=== PATIENT | male | born 1965 | race Caucasian/White ===

== ENCOUNTER 2016-06-02 08:18 | Inpatient (IN) | payer OTHER ==
[~2016-06-02 08:18] MED LIST: ACETAMINOPHEN 325 MG TAB PO ONE; CEFAZOLIN 2 GM/DEXTR 100 ML IV ONE; CHLORHEXIDINE GLUC HIBICLENS 118 ML BTL TP ONE; DEXAMETHASONE 4 MG/ML VIAL IVP ONE; FAMOTIDINE 20 MG TAB PO ONE; ROPI/epiNEPH/KETOROLAC JOINT COCKTAIL IU ONE; TRANEXAMIC ACID 3,000 MG in NS 50 ML IRR ONE
[2016-06-02] MEDS ORDERED: SKIN ADHESIVE (DERMABOND) 1 EACH TP ONE ×2 (08:31→13:10)
[2016-06-02] MEDS ORDERED: VANCOMYCIN 1 GM VIAL IV ONE (08:31)
[2016-06-02] MEDS ORDERED: TRANEXAMIC ACID 3,000 MG/50 ML BAG IRR ONE (08:31)
[2016-06-02] MEDS ORDERED: LIDOCAINE 1% 5 ML SDV ID PRN (08:51)
[2016-06-02] MEDS ORDERED: LR 1,000 ML IV ONE (08:51)
[2016-06-02] MEDS ORDERED: FAMOTIDINE 20 MG TAB ONE (08:56)
[2016-06-02] MEDS ORDERED: DEXAMETHASONE 4 MG/ML VIAL ONE (08:56)
[2016-06-02] MEDS ORDERED: ACETAMINOPHEN 325 MG TAB ONE (08:56)
[2016-06-02] MEDS ORDERED: CEFAZOLIN 2 GM/DEXTROSE/100 ML BAG IV ONE (08:56)
[2016-06-02] MEDS ORDERED: MIDAZOLAM 2 MG/2 ML VIAL ONE (10:53)
[2016-06-02] MEDS ORDERED: PROPOFOL/EMULSION 500 MG/50 ML BOTTLE IV ONE ×2 (11:02→11:53)
[2016-06-02] MEDS ORDERED: METOCLOPRAMIDE 10 MG/2 ML VIAL IVP PRN (11:36)
[2016-06-02] MEDS ORDERED: DIPHENOXYLATE/ATROPINE LOMOTIL 1 TAB PO PRN (11:36)
[2016-06-02] MEDS ORDERED: LACTULOSE 20 GM/30 ML UDCUP PO PRN (11:36)
[2016-06-02] MEDS ORDERED: diphenhydrAMINE 25 MG CAP PO PRN (11:36)
[2016-06-02] MEDS ORDERED: TEMAZEPAM 15 MG CAP PO PRN (11:36)
[2016-06-02] MEDS ORDERED: ONDANSETRON 4 MG/2 ML VIAL IVP PRN (11:36)
[2016-06-02] MEDS ORDERED: MAGNESIUM HYDROXIDE 30 ML UDCUP PO PRN (11:36)
[2016-06-02] MEDS ORDERED: PROMETHAZINE HCL 25 MG SUPPR PR PRN (11:36)
[2016-06-02] MEDS ORDERED: ONDANSETRON DISINTEGRATING 4 MG TAB PO PRN (11:36)
[2016-06-02] MEDS ORDERED: CYCLOBENZAPRINE 10 MG TAB PO PRN (11:36)
[2016-06-02] MEDS ORDERED: PROMETHAZINE HCL 25 MG/ML VIAL IVP PRN (11:36)
[2016-06-02] MEDS ORDERED: BISACODYL 10 MG SUPP PR PRN (11:36)
[2016-06-02] MEDS ORDERED: PHARMACY PAIN CONSULT 1 EA MISC PRN (11:36)
[2016-06-02] MEDS ORDERED: POLYETHYLENE GLYCOL 3350 17 GM PKT PO PRN (11:36)
[2016-06-02] MEDS ORDERED: LR 1,000 ML IV SCH (12:00)
[2016-06-02] MEDS ORDERED: PROPOFOL 200 MG/20 ML VIAL ONE (12:46)
[2016-06-02] MEDS ORDERED: fentaNYL 100 MCG/2 ML INJ ONE (12:47)
[2016-06-02] MEDS ORDERED: ONDANSETRON 4 MG/2 ML VIAL ONE (12:48)
--- NOTE | 2016-06-02 13:07 | POSTOPPROG ---
Post Op Note Date of Operation: 06/02/16 Surgeon: Jarett Villagomez Associate Software Engineer: Narcisa kay Anesthesiologist: Danny Anesthesia: Spinal Pre-op Diagnosis: L knee DJD Post-op Diagnosis: same Indication: PAin Procedure: L TKA with removal ACL screws Findings: DJD knee Inf/Abcess present in the surg proc area at time of surgery?: No EBL: 50-100
[2016-06-02] MEDS ORDERED: BUPIVACAINE 0.5% 30 ML SDV ONE (13:08)
--- NOTE | 2016-06-02 14:32 | DX ---
Left Knee, Two Views History: Postop alignment check. Findings: A left knee prosthesis is present and is in excellent postoperative alignment. Gas is prese nt in the soft tissues as expected postoperatively. No fractures are seen. Impression: Excellent postoperative alignment.
[2016-06-02 14:45] VITALS: RESP 16
[2016-06-02] MEDS: ACETAMINOPHEN 325 MG TAB PO SCH ×3 (15:08→23:10)
[2016-06-02] MEDS ORDERED: WARFARIN SODIUM 5 MG TAB PO SCH (16:00)
[2016-06-02] MEDS: oxyCODONE IR 5 MG TAB PO PRN ×2 (16:10→21:24)
--- NOTE | 2016-06-02 18:11 | GOP ---
[f rep st] OPERATIVE REPORT DATE OF OPERATION: 06/02/2016 SURGEON: Natasha Villagomez MD AIRCRAFT INSTRUMENT REPAIRER: DUONG Shepard ANESTHESIA: Spinal. PREOPERATIVE DIAGNOSIS: Left knee osteoarthritis. POSTOPERATIVE DIAGNOSIS: Left knee osteoarthritis. PROCEDURE PERFORMED: Left total knee arthroplasty. FINDINGS: ESTIMATED BLOOD LOSS: 50 cc. INDICATIONS: This is a 51-year-old male with severe and progressive pain and deformity of the left knee unresponsive to conservative care. Risks and benefits of the surgical intervention were explained in detail. DESCRIPTION OF PROCEDURE: The patient was brought to the operative room and placed on the table in the supine position. Spinal anesthesia was induced without difficulty. A pneumatic tourniquet was applied about the left proximal thigh, and the leg was prepped and draped in a sterile fashion. The leg peña was applied. After exsanguination by elevation the tourniquet was inflated to 250 mm of mercury. Incision was made anterior medial from the tibial tuberosity to a point 2 cm proximal to the superior pole of the patella. Medial parapatellar arthrotomy was carried out from the superior pole of the patella and posteriorly in line with the fibers of the Type 2 VMO. The medial collateral ligament was elevated and the infrapatellar fat pad was resected. The patella was everted and the articular surface was excised. A 38 mm patellar button was placed. The distal femoral guide hole was drilled and the 6 degree alignment cem was placed. A 10 mm distal femoral cut was made without difficulty. Attention was turned to the tibia and a standard 9 mm cut based on the medial and tibial condyle was performed. The tibial articular surface was excised without difficulty. Attention was turned back to the femur and a size 6 Triathlon femoral cutting block was positioned. Anterior, posterior, and chamfer cuts were made, followed by the intercondylar box cut. ACL screws from tibia and femur were removed. The knee was extended and the remnants of the medial and lateral meniscus were excised. The posterior capsule was injected with ropivacaine, epinephrine and Toradol. A size 7 MIS mini-keel tibial tray was positioned. Trial reduction was then carried out. There was excellent range of motion, alignment, and stability using the 16 mm polyethylene. All trials were then removed. The joint was thoroughly irrigated and carefully dried. Two packages of cement and 2 grams of vancomycin were mixed in the vacuum mixer and placed on the fixation surfaces of all surfaces of the components. The components were implanted and all excess cement was thoroughly removed. The permanent 16 mm polyethylene was placed without difficulty. The tourniquet was deflated and all bleeders were coagulated. The wound was thoroughly irrigated and closed using interrupted sutures of 2-0 Vicryl for the joint capsule. The subcu was closed with 3-0 Vicryl and the skin with 4-0 Monocryl. Dermabond and Steri-Strips were applied followed by a compressive dressing. The patient was then moved from the operating room to the recovery room in good condition, having tolerated the procedure well. PATHOLOGY: Severe tricompartmental osteoarthritis. 10 degrees. /[id number]/MODL MTDD
[2016-06-02] MEDS: ceFAZolin 2 GM/DEXTROSE 100 ML IV SCH (18:29)
[2016-06-02] MEDS: FAMOTIDINE 20 MG TAB PO SCH (19:37)
[2016-06-02] MEDS: SENNOSIDES/DOCUSATE SODIUM TAB PO SCH (19:37)
[2016-06-03] MEDS: ceFAZolin 2 GM/DEXTROSE 100 ML IV SCH (03:33)
[2016-06-03] MEDS: ACETAMINOPHEN 325 MG TAB PO SCH ×2 (05:03→11:15)
[2016-06-03 05:33] LABS: HEMATOCRIT 41.2 % (40.0-51.0); HEMOGLOBIN 14.4 g/dL (13.7-17.5)
[2016-06-03 05:50] LABS: INR 1.15 (0.83-1.16); PROTIME(PATIENT) 14.7 SEC (12.0-15.0)
[2016-06-03] MEDS: oxyCODONE IR 5 MG TAB PO PRN ×3 (05:56→12:27)
[2016-06-03] MEDS ORDERED: LEVOTHYROXINE 75 MCG TAB PO SCH (06:00)
[2016-06-03 07:44] VITALS: BP 129/82; PULSE 91; TEMP 98
[2016-06-03] MEDS: SENNOSIDES/DOCUSATE SODIUM TAB PO SCH (08:15)
[2016-06-03] MEDS: FAMOTIDINE 20 MG TAB PO SCH (08:16)
[2016-06-03] MEDS ORDERED: PANTOPRAZOLE SODIUM 40 MG TAB PO SCH (09:00)
[2016-06-03] MEDS ORDERED: traMADol 50 MG TAB PO SCH (09:00)
[2016-06-03] MEDS ORDERED: ENOXAPARIN 40 MG/0.4 ML SYR SC SCH (09:00)
--- NOTE | 2016-06-03 10:28 | SOAPPROG ---
SOAP Progress Note Assessment/Plan: Assessment: Patient is doing well POD 1 s/p L TKA 1.Pain management: pain is well controlled on oral pain meds 2.Anemia: level is expected initially postop. Asymptomatic. Cont to monitor for symptoms 3.VTE ppx: recommend coumadin and lovenox daily. Cont ROSCOE armendariz and SCD 4. d/c planning: d/c to home today pending release from PT. Plan: 06/03/16 10:27 Subjective: Perfecto is doing well today, denies SOB ,chest pain and N/V. Objective: Vital Signs Temp Pulse Resp BP Pulse Ox 36.6 C 91 16 129/82 H 95 06/03/16 07:43 06/03/16 07:43 06/03/16 07:43 06/03/16 07:43 06/03/16 07:43 Laboratory Results 06/03/16 04:28 06/02/16 06/03/16 06/04/16 05:59 05:59 05:59 Intake Total 3370 Output Total 1275 Balance 2095 PT 14.7 SEC (12.0-15.0) 06/03/16 04:28 INR 1.15 (0.83-1.16) 06/03/16 04:28 LLE: incision dressing is clean and dry, NVI, +pf/df ICD10 Worksheet Patient Problems: Problems Problem Status Diagnosed Primary localized osteoarthritis of left knee Acute
[2016-06-03 10:41] VITALS: O2SAT 92
--- NOTE | 2016-06-03 11:38 | GDS ---
[f rep st] DISCHARGE SUMMARY ADMITTING DIAGNOSIS: Left-knee osteoarthritis. DISCHARGE DIAGNOSIS: Left-knee osteoarthritis. PROCEDURE: Left total knee arthroplasty with hardware removal. VTE PROPHYLAXIS: Recommend Coumadin and Lovenox. BRIEF DESCRIPTION OF HOSPITAL STAY: Patient was admitted for an elective joint arthroplasty. The patient tolerated the procedure well and has passed physical therapy. The patient was given appropriate antibiotic prophylaxis and venous thromboembolism prophylaxis. The patient's pain was well controlled on oral pain medication, patient was holding down food, and had urinated. Decision was made to discharge the patient. The patient was given post-operative prescriptions pre-operatively. PLAN: To follow up with Dr. Villagomez at [facility] in 2 to 3 weeks. /[id number]/MODL MTDD
== END 2016-06-03 12:53 | disposition home or self-care (01) | DRG 470 ==
LOC: F3N 08:18
PROVIDERS: ADMIT Orthopaedic Surgery; ATTEND Orthopaedic Surgery
PROC: 0QPH04Z Removal of Internal Fixation Device from Left Tibia, Open Approach (ICD-10-PCS; principal; 2016-06-02 12:15)
PROC: 0QPC04Z Removal of Internal Fixation Device from Left Lower Femur, Open Approach (ICD-10-PCS; principal; 2016-06-02 12:15)
PROC: 0SRD0J9 Replacement of Left Knee Joint with Synthetic Substitute, Cemented, Open Approach (ICD-10-PCS; principal; 2016-06-02 12:15)
DX: M17.12 Unilateral primary osteoarthritis, left knee (principal); E66.9 Obesity, unspecified; Z68.36 Body mass index [BMI] 36.0-36.9, adult
CPT/HCPCS: 97110-GP; 97116-GP; 97161-GP; 97165-GO; C1713; J0171; J0690; J1100; J1650; J1885; J2250; J2405; J2704; J2795; J3010; J3370

== ENCOUNTER 2017-01-12 07:15 | Inpatient (IN) | payer OTHER ==
[~2017-01-12 07:15] MED LIST changes: -ACETAMINOPHEN 325 MG TAB PO ONE; -CEFAZOLIN 2 GM/DEXTR 100 ML IV ONE; -CHLORHEXIDINE GLUC HIBICLENS 118 ML BTL TP ONE; -DEXAMETHASONE 4 MG/ML VIAL IVP ONE; -FAMOTIDINE 20 MG TAB PO ONE; -ROPI/epiNEPH/KETOROLAC JOINT COCKTAIL IU ONE; +ROPIVACAINE 0.2% 80 MG, EPINEPHrine 0.2 MG, KETOROLAC TROMETHAMINE 30 MG in BAG 0 ML IU ONE
[2017-01-12] MEDS ORDERED: VANCOMYCIN 1 GM VIAL ONE (07:48)
[2017-01-12] MEDS ORDERED: TRANEXAMIC ACID 3,000 MG/50 ML BAG IRR ONE (07:48)
--- NOTE | 2017-01-12 08:32 | PDHPUP ---
History & Physical Update H&P update statement: This history and physical update is based on an assessment of the patient which was completed after admission or registration (within 24 hours), but prior to the surgery/procedure. H&P update: H&P reviewed & patient examined, no change in patient's condition since H&P completed
[2017-01-12] MEDS ORDERED: FAMOTIDINE 20 MG TAB PO ONE (08:33)
[2017-01-12] MEDS ORDERED: ACETAMINOPHEN 325 MG TAB PO ONE (08:33)
[2017-01-12] MEDS ORDERED: ceFAZolin 2 GM/DEXTROSE 100 ML IV ONE (08:33)
[2017-01-12] MEDS ORDERED: DEXAMETHASONE 4 MG/ML VIAL IVP ONE (08:33)
[2017-01-12] MEDS ORDERED: LR 1,000 ML IV ONE (08:39)
[2017-01-12] MEDS ORDERED: LIDOCAINE 1% 2 ML INJ ID PRN (08:39)
[2017-01-12] MEDS ORDERED: DEXAMETHASONE 4 MG/ML VIAL ONE ×2 (10:06)
[2017-01-12] MEDS ORDERED: BUPIVACAINE/DEXTROSE 7.5MG/ML 2 ML SPINAL AMP SP ONE (10:06)
[2017-01-12] MEDS ORDERED: MIDAZOLAM 2 MG/2 ML VIAL ONE (10:06)
[2017-01-12] MEDS ORDERED: PROPOFOL/EMULSION 500 MG/50 ML BOTTLE IV ONE (10:06)
--- NOTE | 2017-01-12 10:46 | PDANEPAE ---
ANE Past Medical History - Cardiovascular History Hx Hypertension: No Hx Arrhythmias: No Hx Chest Pain: No Hx Coronary Artery / Peripheral Vascular Disease: No Hx CHF / Valvular Disease: No Hx Palpitations: No Cardiovascular History Comment: BP 138/89 -due to back pain - Pulmonary History Hx COPD: No Hx Asthma/Reactive Airway Disease: No Hx Recent Upper Respiratory Infection: No Hx Oxygen in Use at Home: No Hx Sleep Apnea: No Sleep Apnea Screening Result - Last Documented: Positive - Neurologic History Hx Cerebrovascular Accident: No Hx Seizures: No Hx Dementia: No - Endocrine History Hx Diabetes: No Endocrine History Comment: hypothyroid - Renal History Hx Renal Disorders: No - Neurological & Psychiatric Hx Hx Neurological and Psychiatric Disorders: No 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 L ACL repair 1989. ANE Review of Systems - Exercise capacity METS (RN): 4 METS - Systems Gastrointestinal: Reports: other (gerd) Hematologic/Lymphatic: Reports: other ANE Patient History - Allergies Allergies/Adverse Reactions: No Known Allergies Allergy (Verified 11/15/11 18:36) - Home Medications Home Medications: Levothyroxine [Synthroid 75 mcg (*)] 75 mcg PO DAILY06 04/28/16 [Last Taken 06:00] Multivitamins [Multivitamin (*)] 1 each PO DAILY 04/28/16 [Last Taken 12/30/16] Herbals/Supplements -Info Only 1 ea PO DAILY 12/06/16 [Last Taken 12/30/16] Omeprazole 40 mg PO DAILY 12/06/16 [Last Taken 01/12/17 06:00] - NPO status NPO Since - Liquids (Date): 01/12/17 NPO Since - Liquids (Time): 07:00 NPO Since - Solids (Date): 01/11/17 NPO Since - Solids (Time): 22:00 - Smoking Hx Smoking Status: Never smoked ANE Labs/Vital Signs - Vital Signs Blood Pressure: 139/99 Heart Rate: 71 Respiratory Rate: 16 O2 Sat (%): 93 Height: 170.18 cm Weight: 113.398 kg ANE Physical Exam - Airway Mallampati Score: Class 3 - Pulmonary Pulmonary: other (decreased breath sounds) - Cardiovascular Cardiovascular: regular rate and rhythym - ASA Status ASA Status: III (morbid obesity) ANE Anesthesia Plan Anesthesia Plan: spinal Regional Anesthesia: adductor canal FNB
[2017-01-12] MEDS ORDERED: BUPIVACAINE/EPI 0.5% 30 ML SDV ONE (10:53)
[2017-01-12] MEDS ORDERED: BUPIVACAINE/EPI 0.25% 30 ML SDV ONE (10:53)
[2017-01-12] MEDS ORDERED: ONDANSETRON DISINTEGRATING 4 MG TAB PO PRN (11:55)
[2017-01-12] MEDS ORDERED: TEMAZEPAM 15 MG CAP PO PRN (11:55)
[2017-01-12] MEDS ORDERED: METOCLOPRAMIDE 10 MG/2 ML VIAL IVP PRN (11:55)
[2017-01-12] MEDS ORDERED: BISACODYL 10 MG SUPP PR PRN (11:55)
[2017-01-12] MEDS ORDERED: ONDANSETRON 4 MG/2 ML VIAL IVP PRN (11:55)
[2017-01-12] MEDS ORDERED: POLYETHYLENE GLYCOL 3350 17 GM PKT PO PRN (11:55)
[2017-01-12] MEDS ORDERED: CYCLOBENZAPRINE 10 MG TAB PO PRN (11:55)
[2017-01-12] MEDS ORDERED: PROMETHAZINE HCL 25 MG SUPPR PR PRN (11:55)
[2017-01-12] MEDS ORDERED: MAGNESIUM HYDROXIDE 30 ML UDCUP PO PRN (11:55)
[2017-01-12] MEDS ORDERED: PROMETHAZINE HCL 25 MG/ML INJ IVP PRN (11:55)
[2017-01-12] MEDS ORDERED: LACTULOSE 20 GM/30 ML UDCUP PO PRN (11:55)
[2017-01-12] MEDS ORDERED: DIPHENOXYLATE/ATROPINE LOMOTIL 1 TAB PO PRN (11:55)
[2017-01-12] MEDS ORDERED: diphenhydrAMINE 25 MG CAP PO PRN (11:55)
--- NOTE | 2017-01-12 11:55 | POSTOPPROG ---
Post Op Note Date of Operation: 01/12/17 Surgeon: Jarett Villagomez Tableau Lead: samantha jennings Anesthesiologist: faustino Anesthesia: Local (Specify) (adductor canal), Spinal Pre-op Diagnosis: right knee OA Post-op Diagnosis: right knee OA Indication: failed conservative therapies Procedure: R TKA Inf/Abcess present in the surg proc area at time of surgery?: No EBL: 50-100
[2017-01-12] MEDS ORDERED: LR 1,000 ML IV SCH (12:00)
--- NOTE | 2017-01-12 13:06 | POSTANESTH ---
Post Anesthetic Evaluation Cardiovascular Status: Normal, Stable Respiratory Status: Normal, Stable Level of Consciousness/Mental Status: Can Participate in Eval Pain Control: Adequate, Prn Tx Ordered Nausea/Vomiting Control: Adequate, Prn Tx Ordered Complications Possibly Related to Anesthesia: None Noted
[2017-01-12] MEDS: ACETAMINOPHEN 325 MG TAB PO SCH ×3 (15:03→23:56)
[2017-01-12] MEDS ORDERED: WARFARIN SODIUM 5 MG TAB PO SCH (16:00)
[2017-01-12] MEDS: oxyCODONE IR 5 MG TAB PO PRN ×2 (16:45→20:17)
[2017-01-12] MEDS: ceFAZolin 2 GM/DEXTROSE 100 ML IV SCH (18:23)
[2017-01-12] MEDS: SENNOSIDES/DOCUSATE SODIUM TAB PO SCH (20:17)
[2017-01-12] MEDS: FAMOTIDINE 20 MG TAB PO SCH (20:17)
[2017-01-13] MEDS: oxyCODONE IR 5 MG TAB PO PRN ×3 (01:53→09:57)
[2017-01-13] MEDS: ceFAZolin 2 GM/DEXTROSE 100 ML IV SCH (01:53)
[2017-01-13 05:04] VITALS: RESP 16
[2017-01-13 05:20] LABS: HEMATOCRIT 39.3 % (40.0-51.0); HEMOGLOBIN 13.6 g/dL (13.7-17.5)
[2017-01-13 05:35] LABS: INR 1.14 (0.83-1.16); PROTIME(PATIENT) 14.5 SEC (12.0-15.0)
[2017-01-13] MEDS ORDERED: LEVOTHYROXINE 75 MCG TAB PO SCH (06:00)
[2017-01-13] MEDS: ACETAMINOPHEN 325 MG TAB PO SCH ×2 (06:02→11:59)
[2017-01-13 08:07] VITALS: BP 124/73; PULSE 87; TEMP 98.4; O2SAT 91
--- NOTE | 2017-01-13 08:16 | SOAPPROG ---
SOAP Progress Note Assessment/Plan: Assessment: Patient is doing well POD 1 s/p R TKA Pain management: pain is well controlled on oral pain meds. VTE ppx: recommend lovenox x 4 days and coumadin therapy for 3 weeks, cont ROSCOE and SCDs Anemia: level is expected initially postop. Asymptomatic. Continue to monitor D/c planning: d/c to home today pending release from PT Plan: 01/13/17 08:15 Objective: Vital Signs Temp Pulse Resp BP Pulse Ox 36.9 C 87 16 124/73 H 91 L 01/13/17 08:05 01/13/17 08:05 01/13/17 08:05 01/13/17 08:05 01/13/17 08:05 Laboratory Results 01/13/17 05:01 01/12/17 01/13/17 01/14/17 05:59 05:59 05:59 Intake Total 750 Output Total 450 200 Balance 300 -200 PT 14.5 SEC (12.0-15.0) 01/13/17 05:01 INR 1.14 (0.83-1.16) 01/13/17 05:01 ICD10 Worksheet Patient Problems: Problems Problem Status Onset Primary localized osteoarthritis of left knee Acute
[2017-01-13] MEDS ORDERED: PANTOPRAZOLE SODIUM 40 MG TAB PO SCH (09:00)
[2017-01-13] MEDS ORDERED: WARFARIN SODIUM 5 MG TAB PO ONE (09:00)
[2017-01-13] MEDS ORDERED: ENOXAPARIN 40 MG/0.4 ML SYR SC SCH (09:00)
[2017-01-13] MEDS: SENNOSIDES/DOCUSATE SODIUM TAB PO SCH (09:58)
[2017-01-13] MEDS: FAMOTIDINE 20 MG TAB PO SCH (09:59)
--- NOTE | 2017-01-13 18:24 | GOP ---
[f rep st] OPERATIVE REPORT DATE OF OPERATION: 01/12/2017 SURGEON: Natasha Villagomez MD STEAM SHOVELMAN: DUONG Berumen. ANESTHESIA: Spinal. PREOPERATIVE DIAGNOSIS: Right knee osteoarthritis. POSTOPERATIVE DIAGNOSIS: Right knee osteoarthritis. PROCEDURE PERFORMED: Right total knee arthroplasty. FINDINGS/PATHOLOGY: Severe tricompartmental osteoarthritis. ESTIMATED BLOOD LOSS: 30 cc. INDICATIONS: This is a 51-year-old male with severe and progressive pain and deformity of the right knee unresponsive to conservative care. Risks and benefits of the surgical intervention were explained in detail. DESCRIPTION OF PROCEDURE: The patient was brought to the operative room and placed on the table in the supine position. Spinal anesthesia was induced without difficulty. A pneumatic tourniquet was applied about the right proximal thigh, and the leg was prepped and draped in a sterile fashion. The leg peña was applied. After exsanguination by elevation the tourniquet was inflated to 275 mm of mercury. Incision was made anterior medial from the tibial tuberosity to a point 2 cm proximal to the superior pole of the patella. Medial parapatellar arthrotomy was carried out from the superior pole of the patella and posteriorly in line with the fibers of the Type 2 VMO. The medial collateral ligament was elevated and the infrapatellar fat pad was resected. The patella was everted and the articular surface was excised. A 38 mm patellar button was placed. The distal femoral guide hole was drilled and the 6 degree alignment cem was placed. A 10 mm distal femoral cut was made without difficulty. Attention was turned to the tibia and a standard 9 mm cut based on the lateral fibular condyle was performed. The tibial articular surface was excised without difficulty. Attention was turned back to the femur and a size 5 Triathlon femoral cutting block was positioned. Anterior, posterior, and chamfer cuts were made, followed by the intercondylar box cut. The knee was extended and the remnants of the medial and lateral meniscus were excised. The posterior capsule was injected with ropivacaine, epinephrine and Toradol. A size 7 MIS mini-keel tibial tray was positioned. Trial reduction was then carried out. There was excellent range of motion, alignment, and stability using the mm polyethylene. All trials were then removed. The joint was thoroughly irrigated and carefully dried. Two packages of cement and 2 grams of vancomycin were mixed in the vacuum mixer and placed on the fixation surfaces of all surfaces of the components. The components were implanted and all excess cement was thoroughly removed. The permanent mm polyethylene was placed without difficulty. The tourniquet was deflated and all bleeders were coagulated. The wound was thoroughly irrigated and closed using interrupted sutures of 2-0 Vicryl for the joint capsule. The subcu was closed with 3-0 Vicryl and the skin with 4-0 Monocryl. Dermabond and Steri-Strips were applied followed by a compressive dressing. The patient was then moved from the operating room to the recovery room in good condition, having tolerated the procedure well. /[id number]/MODL MTDD
--- NOTE | 2017-01-14 00:59 | GDS ---
[f rep st] DISCHARGE SUMMARY ADMISSION DIAGNOSIS: Right knee osteoarthritis. DISCHARGE DIAGNOSIS: Right knee osteoarthritis. PROCEDURE: Right total knee arthroplasty. BRIEF DESCRIPTION OF HOSPITAL STAY: Patient was admitted for an elective joint arthroplasty. The p atient tolerated the procedure well and has passed physical therapy. The patient was given appropri ate antibiotic prophylaxis and venous thromboembolism prophylaxis. The patient's pain was well cont rolled on oral pain medication, patient was holding down food, and had urinated. Decision was made to discharge the patient. The patient was given post-operative prescriptions pre-operatively. DVT PROPHYLAXIS: Lovenox x4 days and Coumadin x21 days. PLAN: Please follow up with Dr. Villagomez as scheduled in 3 weeks. /[id number]/MODL
== END 2017-01-13 12:24 | disposition home or self-care (01) | DRG 470 ==
LOC: F3N 08:03
PROVIDERS: ADMIT Orthopaedic Surgery; ATTEND Orthopaedic Surgery
PROC: 0SRC0J9 Replacement of Right Knee Joint with Synthetic Substitute, Cemented, Open Approach (ICD-10-PCS; principal; 2017-01-12 10:00)
DX: M17.11 Unilateral primary osteoarthritis, right knee (principal); K21.9 Gastro-esophageal reflux disease without esophagitis; M10.9 Gout, unspecified; E03.9 Hypothyroidism, unspecified
CPT/HCPCS: 97116-GP; 97161-GP; 97165-GO; C1713; J0171; J0690; J1100; J1650; J1885; J2250; J2704; J2795; J3370